=== PATIENT | male | born 1970 | race Hispanic/Latino ===

== ENCOUNTER 2018-08-28 13:54 | Emergency (ER) | payer OTHER ==
--- OUTSIDE RECORDS SUMMARY | 2018-08-28 13:56 | XMS REPORT ---
:1970 [facility] Address [address] [place] [address] Dr. Bailey. [address] [place] [id number] Care Team Providers Name Role Phone Unavailable Unavailable Unavailable Problems This patient has no known problems. Allergies, Adverse Reactions, Alerts This patient has no known allergies or adverse reactions. Medications This patient has no known medications.
[2018-08-28 15:45] LABS: Absolute Lymphocytes (CBC) 1.6 K/uL (0.7-4.9); Absolute Monocytes 0.6 K/uL (0.1-1.3); Absolute Neutrophil 3.6 K/uL (1.8-8.0); Basophils % 0.9 % (0-1.3); Eosinophils % 1.9 % (0-4.4); Hematocrit 45.4 % (39.6-49.0); Lymphocytes % 27.2 % (15.3-44.8); MPV 8.6 fL (7.6-11.3); Monocytes % 9.3 % (3.3-12.3)
[2018-08-28 15:46] LABS: Protime INR 1.03
--- NOTE | 2018-08-28 15:47 | RAD REPORT ---
EXAM DESCRIPTION: RAD - Chest Single View - 08/28/2018 3:32 pm CLINICAL HISTORY: CHEST PAIN Chest pain. COMPARISON: CHEST SINGLE VIEW dated 01/23/2012 FINDINGS: Portable technique limits examination quality. The lungs are grossly clear. The heart is normal in size. No displaced fractures. IMPRESSION: No acute intrathoracic process suspected.
[2018-08-28 16:08] LABS: ALT/SGPT 33 U/L (12-78); AST/SGOT 29 U/L (15-37); Albumin 4.2 g/dL (3.4-5.0); Alkaline Phosphatase 72 U/L (45-117); BUN Blood Urea Nitrogen 16 mg/dL (7-18); Bicarbonate 29 mmol/L (21-32); Bilirubin Direct 0.1 mg/dL (0-0.2); Bilirubin Total 0.6 mg/dL (0.2-1.0); Glucose Level 102 mg/dL (74-106); Magnesium 1.9 mg/dL (1.8-2.4); NT PRO-BNP 39 pg/mL (<125); Potassium 3.7 mmol/L (3.5-5.1); Sodium Level 138 mmol/L (136-145); Troponin (Emerg Dept Use Only) < 0.02 ng/mL (0.0-0.045)
--- NOTE | 2018-08-28 19:13 | ER ---
Nurse's Notes [facility] Name: Dylon Choudhary Jr Age: 47 yrs Sex: Male : 1970 Arrival Date: 08/28/2018 Time: 13:55 Bed 17 Private MD: Arthur Villegas Diagnosis: Chest pain, unspecified Presentation: 08/28 14:00 Presenting complaint: Intermittent sharp substernal chest pain that started last night hb while watching television. Pain does not radiate. Denies SOB/nausea. Transition of care: patient was not received from another setting of care. Onset of symptoms was August 27, 2018. Risk Assessment: Do you want to hurt yourself or someone else? Patient reports no desire to harm self or others. Care prior to arrival: None. 14:00 Method Of Arrival: Ambulatory hb 14:00 Acuity: [id number] 3 hb 14:58 Initial Sepsis Screen: Does the patient meet any 2 criteria? No. Patient's initial tw2 sepsis screen is negative. Does the patient have a suspected source of infection? No. Patient's initial sepsis screen is negative. Triage Assessment: 14:03 General: Appears in no apparent distress. Behavior is calm, cooperative. Pain: Pain hb currently is 0 out of 10 on a pain scale. at worst was 8 out of 10 on a pain scale. Neuro: Level of Consciousness is awake, alert, obeys commands, Oriented to person, place, time, situation. Cardiovascular: Capillary refill < 3 seconds Patient's skin is warm and dry. Respiratory: Airway is patent Respiratory effort is even, unlabored, Respiratory pattern is regular, symmetrical. Historical: - Allergies: 14:07 No Known Allergies; hb - Home Meds: 14:07 lisinopril Oral [Active]; amlodipine oral [Active]; calcitriol oral oral [Active]; hb Metformin Oral [Active]; Synthroid Oral [Active]; Calci-Chew Oral [Active]; - PSHx: 14:01 Thyroidectomy; Appendectomy; hb - Immunization history:: Adult Immunizations up to date. - Social history:: Smoking status: Patient/guardian denies using tobacco. - Ebola Screening: : No symptoms or risks identified at this time. Screenin:53 Abuse screen: Denies threats or abuse. Nutritional screening: No deficits noted. tw2 Tuberculosis screening: No symptoms or risk factors identified. Fall Risk None identified. Assessment: 14:59 Pain: Pain does not radiate. Pain began 1 day ago. tw2 15:00 General: Appears in no apparent distress. well groomed, Behavior is calm, cooperative, tw2 appropriate for age. Pain: Complains of pain in anterior aspect of left upper chest, xyphoid area, mid-sternal area and left breast. Pain: Quality of pain is described as sharp, when it happens, i was diagnosed with angina a few years ago but only see my primary care dr. Neuro: Level of Consciousness is awake, alert, obeys commands, Oriented to person, place, time, situation. Cardiovascular: Denies chest pain, shortness of breath, currently Heart tones S1 S2 Patient's skin is warm and dry. Respiratory: Airway is patent Respiratory effort is even, unlabored, Respiratory pattern is regular, symmetrical, Breath sounds are clear bilaterally. GI: No signs and/or symptoms were reported involving the gastrointestinal system. Abdomen is round non-distended, Bowel sounds present X 4 quads. : No signs and/or symptoms were reported regarding the genitourinary system. EENT: No signs and/or symptoms were reported regarding the EENT system. Musculoskeletal: Circulation, motion, and sensation intact. Range of motion: intact in all extremities. 15:33 Reassessment: Patient appears in no apparent distress at this time. No changes from tw2 previously documented assessment. Patient and/or family updated on plan of care and expected duration. Pain level reassessed. Patient is alert, oriented x 3, equal unlabored respirations, skin warm/dry/pink. 16:25 Reassessment: Patient appears in no apparent distress at this time. No changes from tw2 previously documented assessment. Patient and/or family updated on plan of care and expected duration. Pain level reassessed. Patient is alert, oriented x 3, equal unlabored respirations, skin warm/dry/pink. provider at bedside at this time with results and pending tests. 17:20 Reassessment: Patient appears in no apparent distress at this time. No changes from tw2 previously documented assessment. Patient and/or family updated on plan of care and expected duration. Pain level reassessed. Patient is alert, oriented x 3, equal unlabored respirations, skin warm/dry/pink. 18:36 Reassessment: Patient appears in no apparent distress at this time. No changes from tw2 previously documented assessment. Patient and/or family updated on plan of care and expected duration. Pain level reassessed. Patient is alert, oriented x 3, equal unlabored respirations, skin warm/dry/pink. 19:23 Reassessment: Patient appears in no apparent distress at this time. Patient and/or ed1 family updated on plan of care and expected duration. Pain level reassessed. Patient is alert, oriented x 3, equal unlabored respirations, skin warm/dry/pink. Patient denies pain at this time. Patient states feeling better. Patient states symptoms have improved. Vital Signs: 14:01 BP 160 / 104; Pulse 84; Resp 16; Temp 98.7(TE); Pulse Ox 100% on R/A; Pain 0/10; hb 15:33 BP 146 / 98; Pulse 72; Resp 18; Pulse Ox 98% on R/A; tw2 16:25 BP 144 / 89; Pulse 70; Resp 16; Pulse Ox 100% on R/A; tw2 17:20 BP 170 / 99; Pulse 78; Resp 19; Pulse Ox 100% on R/A; tw2 18:36 BP 134 / 77; Pulse 78; Resp 17; Pulse Ox 100% on R/A; tw2 19:23 BP 136 / 79; Pulse 83; Resp 19; Temp 97.9(O); Pulse Ox 99% on R/A; Pain 0/10; ed1 ED Course: 13:55 Patient arrived in ED. as 13:55 Arthur Villegas MD is Private Physician. as 14:01 Triage completed. hb 14:05 Arm band placed on left wrist. hb 14:22 EKG completed in triage. Results shown to MD. hb 14:52 Haley Rowley, RUSS is Primary Nurse. tw2 14:53 Bed in low position. Call light in reach. housekeeping laundry worker on. Pulse ox on. NIBP on. tw2 14:53 Patient maintains SpO2 saturation greater than 95% on room air. tw2 15:03 Yvonne Cox FNP-C is PSYCHIATRICP. snw 15:03 Dheeraj Goodman MD is Attending Physician. snw 15:15 Inserted saline lock: 20 gauge in right antecubital area, using aseptic technique. tw2 Blood collected. 15:30 X-ray completed. Portable x-ray completed in exam room. Patient tolerated procedure ml well. 15:33 XRAY Chest (1 view) In Process Unspecified. EDMS 17:38 Troponin (emerg Dept Use Only) Sent. tw2 19:00 Report given to RUSS Salgado. tw2 19:04 Primary Nurse role handed off by Haley Rowley, RUSS ed1 19:04 Naomi Simon, RUSS is Primary Nurse. ed1 19:12 Arthur Villegas MD is Referral Physician. snw 19:23 No provider procedures requiring assistance completed. IV discontinued, intact, ed1 bleeding controlled, No redness/swelling at site. Pressure dressing applied. Administered Medications: No medications were administered Outcome: 19:12 Discharge ordered by . snw 19:23 Discharged to home ambulatory. ed1 19:23 Condition: good 19:23 Discharge instructions given to patient, Instructed on discharge instructions, follow up and referral plans. medication usage, Demonstrated understanding of instructions, follow-up care, medications, Prescriptions given X 1. 19:24 Patient left the ED. ed1 Signatures: Dispatcher [employer] EDMS Yvonne Cox, ENTERPRISE APPLICATION ADMINISTRATOR-C ENTERPRISE APPLICATION ADMINISTRATOR-CsnFrancine Morales Melissa ml Naomi Simon RN RN ed1 Erin Viveros RN RN Haley Rowley RN RN tw2 Corrections: (The following items were deleted from the chart) 14:02 14:00 Presenting complaint: left flank pain that radiates to left abdomen, nausea, hb blood in urine, and fever x 3 days. hb 14:02 14:01 Allergies: PENICILLINS; hb hb 14:02 14:01 Allergies: Sulfa (Sulfonamide Antibiotics); hb hb 14:02 14:01 Allergies: Erythromycin; hb hb 14:02 14:01 Allergies: Keflex; hb hb 14:05 14:00 Onset of symptoms was August 25, 2018 hb hb 14:05 14:00 Presenting complaint: left flank pain that radiates to left abdomen, nausea, hb blood in urine, and fever x 3 days. hb 14:06 14:01 BP 104 / 67; Pulse 107bpm; Resp 16bpm; Pulse Ox 100% RA; Temp 99F; Pain 8/10; hb hb 14:07 14:01 BP 104 / 67; Pulse 84bpm; Resp 16bpm; Pulse Ox 100% RA; Temp 98.7F Temporal; Pain hb 0/10; hb
--- NOTE | 2018-08-28 19:13 | EDPHYS ---
Physician Documentation [facility] Name: Dylon Choudhary Jr Age: 47 yrs Sex: Male : 1970 Arrival Date: 08/28/2018 Time: 13:55 Bed 17 Private MD: Arhtur Villegas ED Physician Dheeraj Goodman HPI: 08/28 16:37 This 47 yrs old Male presents to ER via Ambulatory with complaints of Chest snw Pain. 16:37 Onset: The symptoms/episode began/occurred suddenly, yesterday, recurred today on his snw way to work. Associated signs and symptoms: The patient has no apparent associated signs or symptoms. Modifying factors: The patient symptoms are alleviated by rest, the patient symptoms are aggravated by nothing. The patient has not experienced similar symptoms in the past. It is unknown whether or not the patient has recently seen a physician, sees Dr. Villegas. Hx of angina and these episodes yest and today do not feel similar. Historical: - Allergies: 14:07 No Known Allergies; hb - Home Meds: 14:07 lisinopril Oral [Active]; amlodipine oral [Active]; calcitriol oral oral [Active]; hb Metformin Oral [Active]; Synthroid Oral [Active]; Calci-Chew Oral [Active]; - PSHx: 14:01 Thyroidectomy; Appendectomy; hb - Immunization history:: Adult Immunizations up to date. - Social history:: Smoking status: Patient/guardian denies using tobacco. - Ebola Screening: : No symptoms or risks identified at this time. ROS: 16:37 Constitutional: Negative for fever, chills, and weight loss, Eyes: Negative for injury, snw pain, redness, and discharge, ENT: Negative for injury, pain, and discharge, Neck: Negative for injury, pain, and swelling, Respiratory: Negative for shortness of breath, cough, wheezing, and pleuritic chest pain, Abdomen/GI: Negative for abdominal pain, nausea, vomiting, diarrhea, and constipation, Back: Negative for injury and pain, : Negative for injury, bleeding, discharge, and swelling, MS/Extremity: Negative for injury and deformity, Skin: Negative for injury, rash, and discoloration, Neuro: Negative for headache, weakness, numbness, tingling, and seizure. 16:37 Cardiovascular: Positive for chest pain, stabbing in nature x multiple episodes yesterday and this am as well. Exam: 16:37 Constitutional: This is a well developed, well nourished patient who is awake, alert, snw and in no acute distress. Head/Face: Normocephalic, atraumatic. Eyes: Pupils equal round and reactive to light, extra-ocular motions intact. Lids and lashes normal. Conjunctiva and sclera are non-icteric and not injected. Cornea within normal limits. Periorbital areas with no swelling, redness, or edema. ENT: Nares patent. No nasal discharge, no septal abnormalities noted. Tympanic membranes are normal and external auditory canals are clear. Oropharynx with no redness, swelling, or masses, exudates, or evidence of obstruction, uvula midline. Mucous membranes moist. Neck: Trachea midline, no thyromegaly or masses palpated, and no cervical lymphadenopathy. Supple, full range of motion without nuchal rigidity, or vertebral point tenderness. No Meningismus. Chest/axilla: Normal chest wall appearance and motion. Nontender with no deformity. No lesions are appreciated. Cardiovascular: Regular rate and rhythm with a normal S1 and S2. No gallops, murmurs, or rubs. Normal PMI, no JVD. No pulse deficits. Respiratory: Lungs have equal breath sounds bilaterally, clear to auscultation and percussion. No rales, rhonchi or wheezes noted. No increased work of breathing, no retractions or nasal flaring. Abdomen/GI: Soft, non-tender, with normal bowel sounds. No distension or tympany. No guarding or rebound. No evidence of tenderness throughout. Back: No spinal tenderness. No costovertebral tenderness. Full range of motion. Skin: Warm, dry with normal turgor. Normal color with no rashes, no lesions, and no evidence of cellulitis. MS/ Extremity: Pulses equal, no cyanosis. Neurovascular intact. Full, normal range of motion. Neuro: Awake and alert, GCS 15, oriented to person, place, time, and situation. Cranial nerves II-XII grossly intact. Motor strength 5/5 in all extremities. Sensory grossly intact. Cerebellar exam normal. Normal gait. Psych: Awake, alert, with orientation to person, place and time. Behavior, mood, and affect are within normal limits. Vital Signs: 14:01 BP 160 / 104; Pulse 84; Resp 16; Temp 98.7(TE); Pulse Ox 100% on R/A; Pain 0/10; hb 15:33 BP 146 / 98; Pulse 72; Resp 18; Pulse Ox 98% on R/A; tw2 16:25 BP 144 / 89; Pulse 70; Resp 16; Pulse Ox 100% on R/A; tw2 17:20 BP 170 / 99; Pulse 78; Resp 19; Pulse Ox 100% on R/A; tw2 18:36 BP 134 / 77; Pulse 78; Resp 17; Pulse Ox 100% on R/A; tw2 19:23 BP 136 / 79; Pulse 83; Resp 19; Temp 97.9(O); Pulse Ox 99% on R/A; Pain 0/10; ed1 MDM: 15:05 Patient medically screened. snw 17:40 Data reviewed: vital signs, nurses notes. Data interpreted: Pulse oximetry: on room air snw is 100 %. Interpretation: normal. Counseling: I had a detailed discussion with the patient and/or guardian regarding: the historical points, exam findings, and any diagnostic results supporting the discharge/admit diagnosis, lab results, radiology results, the need for outpatient follow up, to return to the emergency department if symptoms worsen or persist or if there are any questions or concerns that arise at home. Physician consultation: Dheeraj Goodman MD regarding EKG and follow up, d-dimer added. 08/28 15:04 Order name: Basic Metabolic Panel; Complete Time: 16:13 snw 08/28 15:04 Order name: CBC with Diff; Complete Time: 16:07 snw 08/28 15:04 Order name: LFT's; Complete Time: 16:13 snw 08/28 15:04 Order name: Magnesium; Complete Time: 16:13 snw 08/28 15:04 Order name: NT PRO-BNP; Complete Time: 16:13 snw 08/28 15:04 Order name: PT-INR; Complete Time: 16:07 snw 08/28 15:04 Order name: Troponin (emerg Dept Use Only); Complete Time: 16:13 snw 08/28 15:04 Order name: XRAY Chest (1 view); Complete Time: 15:50 snw 08/28 15:04 Order name: EKG; Complete Time: 15:05 snw 08/28 15:04 Order name: Cardiac monitoring; Complete Time: 15:30 snw 08/28 15:04 Order name: EKG - Nurse/Tech; Complete Time: 15:30 snw 08/28 17:25 Order name: Troponin (emerg Dept Use Only); Complete Time: 18:09 tw2 08/28 17:25 Order name: EKG; Complete Time: 17:25 tw2 08/28 17:52 Order name: D-Dimer; Complete Time: 19:12 tw2 08/28 15:04 Order name: IV Saline Lock; Complete Time: 15:30 snw 08/28 15:04 Order name: Labs collected and sent; Complete Time: 15:30 snw 08/28 15:04 Order name: O2 Per Protocol; Complete Time: 15:31 snw 08/28 15:04 Order name: O2 Sat Monitoring; Complete Time: 15:34 snw 08/28 16:27 Order name: Misc. Order: ekg and repeat trop at 1730; Complete Time: 17:38 snw 08/28 17:25 Order name: EKG - Nurse/Tech; Complete Time: 17:52 tw2 Administered Medications: No medications were administered Disposition: 08/28/18 19:12 Discharged to Home. Impression: Chest pain, unspecified. - Condition is Stable. - Discharge Instructions: Nonspecific Chest Pain, Gastroesophageal Reflux Disease, Adult, Hypertension, Pain Without a Known Cause, Aspirin and Your Heart. - Prescriptions for Pepcid 20 mg Oral Tablet - take 1 tablet by ORAL route once daily; 20 tablet. - Work release form, Medication Reconciliation Form, Thank You Letter, Antibiotic Education, Prescription Opioid Use form. - Follow up: Arthur Villegas MD; When: 2 - 3 days; Reason: Recheck today's complaints, Continuance of care, Re-evaluation by your physician. Follow up: Emergency Department; When: As needed; Reason: Worsening of condition. Addendum: 09/01/2018 07:34 Co-signature as Attending Physician, Dheeraj Goodman MD. r n Signatures: Dispatcher [employer] EDMS Yvonne Cox, MARKETING DEVELOPER-C MARKETING DEVELOPER-Csnw Dheeraj Goodman MD MD rn Riggs, Erika, RN RN ed1 Erin Viveros RN RN Haley Rowley RN RN tw2 Corrections: (The following items were deleted from the chart) 08/28 14:02 14:01 Allergies: PENICILLINS; [facility] 14:02 14:01 Allergies: Sulfa (Sulfonamide Antibiotics); [facility] 14:02 14:01 Allergies: Erythromycin; [facility] 14:02 14:01 Allergies: Keflex; [facility] 19:24 19:12 08/28/2018 19:12 Discharged to Home. Impression: Chest pain, unspecified. ed1 Condition is Stable. Forms are Medication Reconciliation Form, Thank You Letter, Antibiotic Education, Prescription Opioid Use. Follow up: Arthur Villegas; When: 2 - 3 days; Reason: Recheck today's complaints, Continuance of care, Re-evaluation by your physician. Follow up: Emergency Department; When: As needed; Reason: Worsening of condition. snw
[2018-08-28 19:34] VITALS: BP 136/79; TEMP 97.9; O2SAT 99
--- NOTE | 2018-08-30 10:30 | EKG ---
Test Date: 2018-08-28 Test Time: 17:43:44 Binder And Box Builder: SORAYA MEASUREMENT RESULTS: Intervals: Rate: 63 FL: 156 QRSD: 82 QT: 384 QTc: 392 [place]: P: 26 FL: 156 QRS: 25 T: -11 INTERPRETIVE STATEMENTS: Normal sinus rhythm Non specific T wave flattening Abnormal ECG Compared to ECG 08/28/2018 14:09:56 no significant change from previous ECG Electronically Signed On 08-29-18 08:09:57 CDT by Vivek Ortega
--- NOTE | 2018-08-30 10:31 | EKG ---
Test Date: 2018-08-28 Test Time: 14:09:56 Laboratory Mechanical Technician: ALVARO MEASUREMENT RESULTS: Intervals: Rate: 71 DC: 164 QRSD: 78 QT: 394 QTc: 428 [place]: P: 48 DC: 164 QRS: 33 T: 0 INTERPRETIVE STATEMENTS: Normal sinus rhythm with sinus arrhythmia Nonspecific T wave abnormality Abnormal ECG Compared to ECG 08/04/2015 09:16:38 T-wave abnormality now present Sinus bradycardia no longer present Electronically Signed On 08-29-18 08:12:05 CDT by Vivek Ortega
== END 2018-08-28 19:24 | disposition home or self-care (01) ==
LOC: ER 13:54
DX: R07.9 Chest pain, unspecified (principal); Z79.4 Long term (current) use of insulin
CPT/HCPCS: 36415; 71045; 80048; 80076; 83735; 83880; 84484; 85025; 85379; 85610; 93005; 99285